=== PATIENT | male | born 1975 | race Caucasian/White ===

== ENCOUNTER 2019-08-03 11:13 | Inpatient (IN) ==
[2019-08-03] MEDS ORDERED: levoFLOXacin 500 MG/100 ML 500 MG/100 ML BAG IVPB ONE (11:54)
[2019-08-03] MEDS ORDERED: Ringers Solution, Lactated 1,000 ML IVC SCH (12:00)
[2019-08-03] MEDS ORDERED: Famotidine 20 MG/2 ML VIAL IVP ONE (12:02)
[2019-08-03] MEDS ORDERED: *HR* OxyCODONE Immed Rel 5 MG TABLET PO PRN (12:02)
[2019-08-03] MEDS ORDERED: Ondansetron 4 MG/2 ML VIAL IVP ONE (12:02)
[2019-08-03] MEDS ORDERED: Albuterol 2.5 MG/3 ML NEBULIZER IH PRN (12:02)
[2019-08-03] MEDS ORDERED: Gabapentin 300 MG CAPSULE PO ONE (12:02)
[2019-08-03] MEDS ORDERED: Acetaminophen IV 1,000 MG/100 ML INFUS..BTL IVPB ONE (12:02)
[2019-08-03] MEDS ORDERED: *HR* Labetalol 20 MG/4 ML SYRINGE IVP PRN (12:02)
[2019-08-03] MEDS ORDERED: *HR* Promethazine 25 MG/ML VIAL IVP PRN (12:02)
[2019-08-03] MEDS ORDERED: *HR* Rocuronium Bromide 50 MG/5 ML VIAL ONE (12:07)
[2019-08-03] MEDS ORDERED: Lidocaine -MPF 2% 2 ML VIAL ONE (12:07)
[2019-08-03] MEDS ORDERED: *HR* Midazolam HCl 2 MG/2 ML VIAL ONE (12:07)
[2019-08-03] MEDS ORDERED: Ketorolac 30 MG/ML VIAL ONE (12:07)
[2019-08-03] MEDS ORDERED: Dexamethasone 4 MG/ML VIAL ONE (12:07)
[2019-08-03] MEDS ORDERED: Ondansetron 4 MG/2 ML VIAL ONE (12:07)
[2019-08-03] MEDS ORDERED: *HR* Propofol 200 MG/20 ML VIAL IVP ONE (12:07)
[2019-08-03] MEDS ORDERED: *HR* FentaNYL (PF) 100 MCG/2 ML VIAL ONE (12:07)
[2019-08-03] MEDS ORDERED: *HR* Midazolam HCl 2 MG/2 ML VIAL IVP ONE (12:11)
[2019-08-03] MEDS ORDERED: *HR* FentaNYL (PF) 100 MCG/2 ML VIAL IVP ONE (12:11)
[2019-08-03] MEDS ORDERED: Lidocaine HCL 4 ML Topical Solution (Laryng-O-Jet Kit Sterile Pak) TP ONE (12:13)
[2019-08-03] MEDS ORDERED: Isovue-300 150 ML INFUS..BTL ONE (13:17)
[2019-08-03] MEDS ORDERED: 0.9 % Sodium Chloride 500 ML ONE (13:52)
[2019-08-03] MEDS ORDERED: Isovue-300 50ML VIAL IVP ONE (14:04)
[2019-08-03] MEDS: *HR* HYDROmorphone (PF) 1 MG/ML SYRINGE IVP PRN ×3 (15:50→16:03)
[2019-08-03] MEDS ORDERED: Naloxone 0.4 MG/ML INJ IVP PRN (16:57)
[2019-08-03] MEDS: *HR* OxyCODONE Immed Rel 5 MG TABLET PO PRN ×2 (17:10→21:25)
[2019-08-03] MEDS: Ondansetron 4 MG/2 ML VIAL IVP PRN (17:10)
[2019-08-03] MEDS: 0.9 % Sodium Chloride 1,000 ML IVC SCH (19:33)
[2019-08-03] MEDS: Acetaminophen 325 MG TABLET PO PRN (19:33)
[2019-08-03] MEDS: *HR* Promethazine 25 MG/ML VIAL IVP PRN (20:53)
[2019-08-03] MEDS: Potassium Effervescent 25 MEQ TABLET.EFF PO SCH (20:53)
[2019-08-03] MEDS: Scopolamine Patch 1.5 MG PATCH.TD72 TD SCH (20:53)
[2019-08-04] MEDS: *HR* OxyCODONE Immed Rel 5 MG TABLET PO PRN ×3 (02:54→18:35)
[2019-08-04] MEDS: 0.9 % Sodium Chloride 1,000 ML IVC SCH ×3 (02:54→18:39)
[2019-08-04] MEDS: Acetaminophen 325 MG TABLET PO PRN (05:03)
[2019-08-04 05:32] LABS: Basophils % 0.1 %; Eosinophils % 0.1 %; Hematocrit 47.3 % (37.5-50.1); Hemoglobin 15.8 g/dL (12.9-16.9); Immature Granulocytes % 0.9 % (0-4); Mean Corpuscular HGB Conc 33.4 g/dL (31.6-35.5); Mean Corpuscular Hemoglobin 30.2 pg (28.0-33.3); Mean Corpuscular Volume 90.4 fL (83.0-100.0); Mean Platelet Volume 9.2 fL (9.4-12.4); Monocytes % 8.9 %; Neutrophils # 8.7 K/mcL (1.6-8.9); Platelet Count 317 K/mcL (140-400); Red Blood Count 5.23 M/mcL (4.19-5.50); Red Cell Distribution Width 14.3 % (11.5-14.5); White Blood Count 10.8 K/mcL (4.3-11.1)
[2019-08-04 05:33] LABS: BUN/Creatinine Ratio 17 (6-26); Blood Urea Nitrogen 21 mg/dL (6-20); Calcium 8.8 mg/dL (8.6-10.3); Carbon Dioxide 23 mEq/L (23-29); Chloride 103 mEq/L (98-107); Glucose 136 mg/dL (70-105); Osmolality,Calculated 285 (280-300); Potassium 4.9 mEq/L (3.5-5.1); Sodium 135 mEq/L (136-145); eGFR For African Americans > 60 (> 60); eGFR For Non-African Americans > 60 (> 60)
[2019-08-04] MEDS: hydroCHLOROthiazide 25 MG TABLET PO SCH (10:11)
[2019-08-04] MEDS: Lisinopril 20 MG TABLET PO SCH (10:12)
[2019-08-04] MEDS: levoFLOXacin 500 MG/100 ML 500 MG/100 ML BAG IVPB SCH (10:12)
[2019-08-04] MEDS: (Febuxostat 80 MG) PO SCH (10:16)
[2019-08-04] MEDS: Potassium Effervescent 25 MEQ TABLET.EFF PO SCH ×2 (10:22→21:38)
[2019-08-05] MEDS: *HR* Promethazine 25 MG/ML VIAL IVP PRN ×2 (00:57→10:11)
[2019-08-05] MEDS: *HR* OxyCODONE Immed Rel 5 MG TABLET PO PRN (00:57)
[2019-08-05 05:22] LABS: Hematocrit 47.3 % (37.5-50.1); Hemoglobin 15.5 g/dL (12.9-16.9); Mean Corpuscular HGB Conc 32.8 g/dL (31.6-35.5); Mean Corpuscular Hemoglobin 29.9 pg (28.0-33.3); Mean Corpuscular Volume 91.3 fL (83.0-100.0); Mean Platelet Volume 9.3 fL (9.4-12.4); Platelet Count 318 K/mcL (140-400); Red Blood Count 5.18 M/mcL (4.19-5.50); Red Cell Distribution Width 14.5 % (11.5-14.5); White Blood Count 15.1 K/mcL (4.3-11.1)
[2019-08-05] MEDS: 0.9 % Sodium Chloride 1,000 ML IVC SCH ×3 (05:40→15:12)
[2019-08-05] MEDS: Ondansetron 4 MG/2 ML VIAL IVP PRN ×2 (05:54→15:18)
[2019-08-05] MEDS: hydroCHLOROthiazide 25 MG TABLET PO SCH (08:32)
[2019-08-05] MEDS: Lisinopril 20 MG TABLET PO SCH (08:32)
[2019-08-05] MEDS: Potassium Effervescent 25 MEQ TABLET.EFF PO SCH ×2 (08:32→21:55)
[2019-08-05] MEDS: levoFLOXacin 500 MG/100 ML 500 MG/100 ML BAG IVPB SCH (08:32)
[2019-08-05] MEDS: (Febuxostat 80 MG) PO SCH (08:35)
[2019-08-05] MEDS: Metoclopramide 10 MG/2 ML VIAL IVP PRN ×2 (11:39→21:55)
[2019-08-05] MEDS: Acetaminophen 325 MG TABLET PO PRN (15:17)
[2019-08-05 16:46] LABS: Bilirubin,Urine Negative (Negative); Blood,Urine Large (Negative); Glucose,Urine (UA) Normal (Normal); Ketones,Urine Negative (Negative); Leukocyte Esterase,Urine Moderate (Negative); Nitrite,Urine Negative (Negative); Protein,Urine >=300 mg/dL (Neg-Trace); Specific Gravity,Urine 1.026 (1.010-1.025); Urobilinogen,Urine Normal (Normal)
[2019-08-05 16:47] LABS: Clarity,Urine Turbid (Clear); Color,Urine Red (Yellow)
[2019-08-05] MEDS ORDERED: 0.9 % Sodium Chloride 1,000 ML IVC ONE (17:21)
[2019-08-06] MEDS: Metoclopramide 10 MG/2 ML VIAL IVP PRN (04:52)
[2019-08-06] MEDS: 0.9 % Sodium Chloride 1,000 ML IVC SCH ×2 (04:56→21:22)
[2019-08-06 05:41] LABS: Hematocrit 47.8 % (37.5-50.1); Hemoglobin 15.7 g/dL (12.9-16.9); Mean Corpuscular HGB Conc 32.8 g/dL (31.6-35.5); Mean Corpuscular Hemoglobin 30.1 pg (28.0-33.3); Mean Corpuscular Volume 91.6 fL (83.0-100.0); Mean Platelet Volume 9.2 fL (9.4-12.4); Platelet Count 312 K/mcL (140-400); Red Blood Count 5.22 M/mcL (4.19-5.50); Red Cell Distribution Width 14.1 % (11.5-14.5); White Blood Count 16.4 K/mcL (4.3-11.1)
[2019-08-06 05:55] LABS: BUN/Creatinine Ratio 16 (6-26); Blood Urea Nitrogen 18 mg/dL (6-20); Calcium 8.8 mg/dL (8.6-10.3); Carbon Dioxide 26 mEq/L (23-29); Chloride 99 mEq/L (98-107); Glucose 107 mg/dL (70-105); Osmolality,Calculated 282 (280-300); Potassium 3.9 mEq/L (3.5-5.1); Sodium 135 mEq/L (136-145); eGFR For African Americans > 60 (> 60); eGFR For Non-African Americans > 60 (> 60)
[2019-08-06] MEDS: levoFLOXacin 500 MG/100 ML 500 MG/100 ML BAG IVPB SCH (08:57)
[2019-08-06] MEDS: hydroCHLOROthiazide 25 MG TABLET PO SCH (08:57)
[2019-08-06] MEDS: Lisinopril 20 MG TABLET PO SCH (08:58)
[2019-08-06] MEDS: Potassium Effervescent 25 MEQ TABLET.EFF PO SCH ×2 (08:58→21:28)
[2019-08-06] MEDS: (Febuxostat 80 MG) PO SCH (09:11)
[2019-08-06] MEDS: Ondansetron 4 MG/2 ML VIAL IVP PRN (15:37)
[2019-08-06] MEDS ORDERED: Methylnaltrexone 12 MG/0.6 ML SYRINGE SQ ONE (16:14)
[2019-08-06] MEDS: Metoclopramide 10 MG/2 ML VIAL IVP SCH (16:56)
[2019-08-06] MEDS: Scopolamine Patch 1.5 MG PATCH.TD72 TD SCH (21:25)
[2019-08-07] MEDS: 0.9 % Sodium Chloride 1,000 ML IVC SCH ×3 (01:13→18:51)
[2019-08-07] MEDS: Metoclopramide 10 MG/2 ML VIAL IVP SCH ×3 (01:13→16:23)
[2019-08-07] MEDS: hydroCHLOROthiazide 25 MG TABLET PO SCH (08:33)
[2019-08-07] MEDS: levoFLOXacin 500 MG/100 ML 500 MG/100 ML BAG IVPB SCH (08:34)
[2019-08-07] MEDS: Potassium Effervescent 25 MEQ TABLET.EFF PO SCH ×2 (08:34→20:19)
[2019-08-07] MEDS: Lisinopril 20 MG TABLET PO SCH (08:34)
[2019-08-07] MEDS: (Febuxostat 80 MG) PO SCH (08:35)
[2019-08-07 11:24] LABS: Calculi Mass 572 mg
[2019-08-08] MEDS: 0.9 % Sodium Chloride 1,000 ML IVC SCH (03:38)
[2019-08-08] MEDS: hydroCHLOROthiazide 25 MG TABLET PO SCH (08:06)
[2019-08-08] MEDS: Potassium Effervescent 25 MEQ TABLET.EFF PO SCH ×2 (08:06→20:04)
[2019-08-08] MEDS: Lisinopril 20 MG TABLET PO SCH (08:06)
[2019-08-08] MEDS: levoFLOXacin 500 MG/100 ML 500 MG/100 ML BAG IVPB SCH (08:07)
[2019-08-08] MEDS ORDERED: E-Z-PAQUE (BARIUM SULF) SUSP 1 BOTTLE PO ONE (15:43)
[2019-08-08] MEDS: (Febuxostat 80 MG) PO SCH (16:00)
[2019-08-09] MEDS: Lisinopril 20 MG TABLET PO SCH (07:53)
[2019-08-09] MEDS: Potassium Effervescent 25 MEQ TABLET.EFF PO SCH ×2 (07:53→21:00)
[2019-08-09] MEDS: hydroCHLOROthiazide 25 MG TABLET PO SCH (07:53)
[2019-08-09] MEDS: levoFLOXacin 500 MG/100 ML 500 MG/100 ML BAG IVPB SCH (07:54)
[2019-08-09] MEDS: (Febuxostat 80 MG) PO SCH (08:03)
[2019-08-09] MEDS: Scopolamine Patch 1.5 MG PATCH.TD72 TD SCH (21:01)
[2019-08-09] MEDS: Acetaminophen 325 MG TABLET PO PRN (22:50)
[2019-08-10] MEDS: *HR* OxyCODONE Immed Rel 5 MG TABLET PO PRN (03:19)
[2019-08-10] MEDS ORDERED: Ibuprofen 600 MG TABLET PO PRN (07:27)
[2019-08-10] MEDS: hydroCHLOROthiazide 25 MG TABLET PO SCH (09:29)
[2019-08-10] MEDS: levoFLOXacin 500 MG/100 ML 500 MG/100 ML BAG IVPB SCH (09:30)
[2019-08-10] MEDS: Potassium Effervescent 25 MEQ TABLET.EFF PO SCH (09:30)
[2019-08-10] MEDS: Lisinopril 20 MG TABLET PO SCH (09:30)
[2019-08-10] MEDS: (Febuxostat 80 MG) PO SCH (09:31)
[2019-08-10 10:09] VITALS: BP 128/76
== END 2019-08-10 15:07 | disposition home or self-care (01) | DRG 660 ==
LOC: 3ANU 11:13 → SAMDAY 11:13 → 3ANU 16:55
PROVIDERS: ADMIT Urology; ATTEND Urology